=== PATIENT | female | born 1975 | race African-American/Black ===

== ENCOUNTER 2018-11-29 16:35 | Emergency (ER) | payer MEDICAID ==
[~2018-11-29] VITALS: Ht 154.9 cm; Wt 63.0 kg
[2018-11-29] MEDS ORDERED: SODIUM CHLORIDE 0.9% 1,000 ML IV ONE (17:52)
[2018-11-29] MEDS ORDERED: LORAZEPAM 2MG/ML CPJ IV ONE (18:00)
[2018-11-29] MEDS ORDERED: FOLIC ACID 1 MG, THIAMINE HCL 100 MG, MVI, ADULT NO.1 10 ML in DEXTROSE 5% WATER 1,000 ML IV ONE ×4 (18:00)
[2018-11-29] MEDS ORDERED: ONDANSETRON HCL 4MG/2ML INJ IV ONE (18:00)
[2018-11-29 18:17] LABS: BASOPHILS % 1.2 % (0.0-2.0); EOSINOPHILS % 0.1 % (0.0-5.0); HEMATOCRIT. 31.4 % (36.0-48.0); HEMOGLOBIN. 10.6 g/dL (12.0-16.0); LYMPHOCYTES % 14.1 % (20.0-50.0); MEAN CORPUSCULAR HEMOGLOBIN 33.1 pg (28.0-32.0); MEAN CORPUSCULAR VOLUME 97.7 fL (81.0-99.0); MEAN PLATELET VOLUME 8.3 fl (7.4-10.4); MONOCYTES % 7.1 % (2.0-8.0); NEUTROPHILS % 77.5 % (40.0-76.0); PLATELET 149 x1000/uL (130-400); RED BLOOD CELL COUNT 3.21 mill/uL (4.2-5.4); RED CELL DISTRIBUTION WIDTH 13.8 % (11.6-14.6)
[2018-11-29 18:23] LABS: PROTHROMBIN TIME 10.3 sec (9.6-11.0)
[2018-11-29 18:24] LABS: CHLORIDE 98 mEq/L (98-107)
[2018-11-29 18:33] LABS: HCG SCREEN NEGATIVE
[2018-11-29] MEDS ORDERED: POTASSIUM CHLORIDE 20MEQ TABLET SR PO NR (18:45)
[2018-11-29 19:35] LABS: ETHANOL BLOOD < 10 mg/dL
[2018-11-29] MEDS ORDERED: MAGNESIUM 1 G PREMIX 100 ML IV SCH (20:00)
[2018-11-29] MEDS ORDERED: CHLORDIAZEPOXIDE 25MG CAPSULE PO ONE (21:00)
[2018-11-30 00:31] VITALS: BP 141/90
== END 2018-11-30 00:55 | disposition home or self-care (01) ==
LOC: ER 16:35
DX: R11.2 Nausea with vomiting, unspecified (principal); F10.239 Alcohol dependence with withdrawal, unspecified; E87.8 Other disorders of electrolyte and fluid balance, not elsewhere classified; K70.10 Alcoholic hepatitis without ascites; D64.9 Anemia, unspecified; Y90.0 Blood alcohol level of less than 20 mg/100 ml; Z98.890 Other specified postprocedural states; Z87.09 Personal history of other diseases of the respiratory system; Z88.0 Allergy status to penicillin
CPT/HCPCS: 36415; 71045; 80053; 80320; 83690; 83735; 84703; 85025; 85610; 93005; 96361; 96365; 96366; 96368; 96375; 99284; J2060; J2405; J3411; J3475; J3490; J7030; J7070; G0480

== ENCOUNTER 2021-02-03 01:30 | Emergency (ER) | payer MEDICAID ==
[~2021-02-03] VITALS: Ht 154.9 cm; Wt 63.0 kg
[2021-02-03 01:39] VITALS: BP 117/83
[2021-02-03] MEDS ORDERED: IBUPROFEN 100MG/5ML UDC PO ONE (02:15)
[2021-02-03] MEDS ORDERED: FLUORESCEIN SODIUM 1MG/STRIP RIGHTEYE ONE (02:15)
[2021-02-03] MEDS ORDERED: 0.9126SP BOTHNSTRLS (03:57)
[2021-02-03] MEDS ORDERED: IBUP-2029 MT (03:57)
== END 2021-02-03 04:51 | disposition home or self-care (01) ==
LOC: ER 01:30
DX: S02.2XXA Fracture of nasal bones, initial encounter for closed fracture (principal); S00.12XA Contusion of left eyelid and periocular area, initial encounter; Z88.0 Allergy status to penicillin; S06.9X0A Unspecified intracranial injury without loss of consciousness, initial encounter; Y04.0XXA Assault by unarmed brawl or fight, initial encounter; Y93.89 Activity, other specified; Y92.89 Other specified places as the place of occurrence of the external cause; Y99.8 Other external cause status
CPT/HCPCS: 70486; 81025; 99284

== ENCOUNTER 2021-04-25 10:16 | Emergency (ER) | payer MEDICAID ==
[~2021-04-25] VITALS: Ht 165.1 cm; Wt 62.0 kg
[~2021-04-25 10:16] MED LIST: 0.9126SP BOTHNSTRLS; IBUP-2029 MT
[2021-04-25 10:37] VITALS: BP 115/81
[2021-04-25 11:24] LABS: CLARITY URINE CLEAR (CLEAR); COLOR URINE YELLOW (YELLOW); KETONES URINE TRACE (NEGATIVE); LEUKOCYTE ESTERASE URINE NEGATIVE (NEGATIVE); NITRITE URINE NEGATIVE (NEGATIVE); OCCULT BLOOD URINE 2+ (NEGATIVE); PH URINE 6.5 (4.5-8.0); PROTEIN URINE 1+ (NEGATIVE); SPECIFIC GRAVITY URINE 1.015 (1.005-1.030); UROBILINOGEN URINE 0.2 E.U./dL (0.2-1.0)
[2021-04-25 11:28] LABS: BASOPHILS % 0.6 % (0.0-2.0); EOSINOPHILS % 0.5 % (0.0-5.0); HEMATOCRIT. 30.2 % (36.0-48.0); HEMOGLOBIN. 10.2 g/dL (12.0-16.0); LYMPHOCYTES % 28.1 % (20.0-50.0); MEAN CORPUSCULAR HEMOGLOBIN 33.1 pg (28.0-32.0); MEAN PLATELET VOLUME 7.7 fl (7.4-10.4); MONOCYTES % 12.1 % (2.0-8.0); NEUTROPHILS % 58.7 % (40.0-76.0); PLATELET 226 x1000/uL (130-400); RED BLOOD CELL COUNT 3.08 mill/uL (4.2-5.4)
[2021-04-25 11:29] LABS: CHLORIDE 105 mEq/L (98-107)
[2021-04-25 11:36] LABS: HCG SCREEN NEGATIVE
[2021-04-25 11:40] LABS: B-HCG QUANTITATIVE < 1 mIU/mL (<3)
[2021-04-25] MEDS ORDERED: FERR-71 MT (15:15)
[2021-04-25] MEDS ORDERED: ASCO100T12 MT (15:15)
[2021-04-25] MEDS ORDERED: MEDR10TA3 MT (15:15)
== END 2021-04-25 15:46 | disposition home or self-care (01) ==
LOC: ER 10:16
DX: N93.8 Other specified abnormal uterine and vaginal bleeding (principal); Z88.0 Allergy status to penicillin
CPT/HCPCS: 36415; 76830; 76856; 80053; 81003; 81025; 84702; 84703; 85025; 99284

== ENCOUNTER 2021-06-16 22:43 | Emergency (ER) | payer MEDICAID ==
[~2021-06-16] VITALS: Ht 152.4 cm; Wt 62.0 kg
[~2021-06-16 22:43] MED LIST changes: +ASCO100T12 MT; +FERR-71 MT; +MEDR10TA3 MT
[2021-06-17 00:24] LABS: CLARITY URINE CLEAR (CLEAR); COLOR URINE YELLOW (YELLOW); KETONES URINE TRACE (NEGATIVE); LEUKOCYTE ESTERASE URINE NEGATIVE (NEGATIVE); NITRITE URINE NEGATIVE (NEGATIVE); OCCULT BLOOD URINE NEGATIVE (NEGATIVE); PROTEIN URINE TRACE (NEGATIVE); SPECIFIC GRAVITY URINE 1.016 (1.005-1.030)
[2021-06-17] MEDS ORDERED: DOXY100C5 MT (00:36)
[2021-06-17 00:40] VITALS: BP 128/86
[2021-06-17] MEDS ORDERED: LIDOCAINE HCL 1% 10 MG/ML 10ML VIAL INJ NR (00:45)
[2021-06-17] MEDS ORDERED: CEFTRIAXONE SODIUM 1 G/VIAL IM NR (00:45)
[2021-06-17] MEDS ORDERED: AZITHROMYCIN 500 MG TABLET PO NR (00:45)
== END 2021-06-17 01:14 | disposition home or self-care (01) ==
LOC: ER 22:43
DX: N34.2 Other urethritis (principal); I49.8 Other specified cardiac arrhythmias; Z88.0 Allergy status to penicillin; Z98.890 Other specified postprocedural states
CPT/HCPCS: 81003; 81025; 93005; 96372; 99284; J0696

== ENCOUNTER 2022-07-19 20:00 | Emergency (ER) | payer MEDICAID ==
[~2022-07-19] VITALS: Ht 165.1 cm; Wt 63.0 kg
[~2022-07-19 20:00] MED LIST changes: +DOXY100C5 MT; +MEDR10TA MT; -MEDR10TA3 MT
[2022-07-19 20:39] LABS: BASOPHILS % 0.4 % (0.0-2.0); EOSINOPHILS % 0.1 % (0.0-5.0); HEMATOCRIT. 30.5 % (36.0-48.0); HEMOGLOBIN. 10.3 g/dL (12.0-16.0); LYMPHOCYTES % 13.5 % (20.0-50.0); MEAN CORPUSCULAR HEMOGLOBIN 32.4 pg (28.0-32.0); MEAN PLATELET VOLUME 7.9 fl (7.4-10.4); MONOCYTES % 9.2 % (2.0-8.0); NEUTROPHILS % 76.8 % (40.0-76.0); PLATELET 155 x1000/uL (130-400); RED BLOOD CELL COUNT 3.18 mill/uL (4.2-5.4); RED CELL DISTRIBUTION WIDTH 14.9 % (11.6-14.6)
[2022-07-19 20:46] LABS: CHLORIDE 90 mEq/L (98-107)
[2022-07-19 20:49] LABS: HCG SCREEN NEGATIVE
[2022-07-19 20:52] LABS: ETHANOL BLOOD < 10 mg/dL
[2022-07-19] MEDS ORDERED: LORAZEPAM 2MG/ML CPJ IV ONE ×2 (21:15→22:45)
[2022-07-19] MEDS ORDERED: POTASSIUM CHLORIDE 20MEQ TABLET SR PO ONE (22:30)
[2022-07-19] MEDS ORDERED: LABETALOL HCL VIAL 20 MG/4 ML VIAL IV PRN (22:45)
[2022-07-20] MEDS ORDERED: LABETALOL 5MG/ML SYR 20 MG/4 ML SYRINGE IV PRN (01:45)
[2022-07-20 02:28] VITALS: BP 145/102
== END 2022-07-20 02:30 | disposition short-term general hospital (02) ==
LOC: ER 20:00 → CANBEDREQ 07-20 07:30
DX: F10.239 Alcohol dependence with withdrawal, unspecified (principal); Y90.0 Blood alcohol level of less than 20 mg/100 ml; E87.6 Hypokalemia; Z88.0 Allergy status to penicillin
CPT/HCPCS: 36415; 70450; 71045; 80053; 80320; 84703; 85025; 93005; 96374; 96375; 96376; 99285; J2060; J3490; Z7610; G0480